=== PATIENT | male | born 1995 | race African-American/Black ===

== ENCOUNTER 2018-10-31 00:50 | Emergency (ER) | payer OTHER ==
[~2018-10-31] VITALS: Ht 182.9 cm; Wt 97.5 kg
[2018-10-31 01:39] LABS: ABSOLUTE NEUTROPHILS 6.5 thou/uL (1.4-8.2); BASOPHILS 0.2 % (0.0-2.0); EOSINOPHILS 1.1 % (0.0-3.0); HEMATOCRIT 48.1 % (42.0-52.0); HEMOGLOBIN 15.6 gm/dL (14.0-18.0); LYMPHOCYTES 8.4 % (24.0-44.0); MCH 26.1 pg (26.0-34.0); MCHC 32.4 g/dL (28.0-37.0); MCV 80.4 fL (80.0-100.0); MONOCYTES 2.7 % (1.0-8.0); PLATELET COUNT 123 thou/uL (150-400); POLYS 87.6 % (36.0-66.0); RBC 5.98 mil/uL (4.50-6.00); RDW 12.4 % (10.5-14.5); WBC 7.5 thou/uL (4.0-11.0)
[2018-10-31 01:42] LABS: CALCIUM 9.4 mg/dL (8.5-10.1); CREATININE 1.3 mg/dL (0.7-1.3); POTASSIUM 3.5 mmol/L (3.5-5.1)
[2018-10-31 01:48] LABS: ALBUMIN 4.2 g/dL (3.4-5.0); TOTAL BILIRUBIN 0.9 mg/dL (<0.1-1.0); TOTAL PROTEIN 8.3 g/dL (6.4-8.2)
[2018-10-31 02:56] LABS: LARGE PLATELETS OCCASIONAL
[2018-10-31] MEDS ORDERED: NORCO 5-325 TA1 EACH PO (05:23)
[2018-10-31] MEDS ORDERED: AUGMENTIN 875-1 EACH PO (05:23)
[2018-10-31 05:35] VITALS: BP 153/86
== END 2018-10-31 05:36 | disposition home or self-care (01) ==
LOC: ER 00:50
PROVIDERS: Emergency Medicine
DX: K08.89 Other specified disorders of teeth and supporting structures (principal); R59.0 Localized enlarged lymph nodes